=== PATIENT | female | born 2005 | race Caucasian/White ===

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

== ENCOUNTER 2025-02-28 11:47 | Outpatient (CLI) | payer OTHER, SELFPAY ==
--- NOTE | ~2025-02-28 | XR_ITS ---
EXAMINATION: SCOLIOSIS DATE: 03/02/2025 7:55 KITCHEN BATH DESIGNER INDICATION: There is origin TECHNIQUE: Standing AP and lateral views of the thoracolumbar spine FINDINGS: There are 12 rib bearing thoracic vertebral bodies and 5 non-rib bearing lumbar type vertebral bodies. There is no listhesis, compression deformity or vertebral body anomalies. There is dextroscoliosis of the thoracic spine centered at T9-T10 measuring 10 degrees. There is levoscoliosis of the lower thoracic and lumbar spine centered at L1 measuring 10 degrees. IMPRESSION: 1. Mild S-shaped scoliosis. 2. No vertebral body anomalies. Reviewed, dictated and finalized at location I. HEN BATH DESIGNER
== END 2025-02-28 11:48 | disposition home or self-care (01) ==
PROVIDERS: PCP Family Medicine; Visit Provider Family Medicine
DX: M54.9 Dorsalgia, unspecified (principal); M41.9 Scoliosis, unspecified
CPT/HCPCS: 72082

== ENCOUNTER 2025-04-03 12:41 | Outpatient (CLI) | payer OTHER, SELFPAY ==
--- NOTE | ~2025-04-03 | US_ITS ---
US renal BI 04/03/2025 12:56 Procedure: Realtime transabdominal ultrasound of the kidneys and bladder. Indication: Acute cystitis. Hematuria. Pain. Comparison: No prior studies for comparison. Findings: Renal echotexture is normal bilaterally without hydronephrosis, contour deforming mass or renal calculus. The right kidney measures 9 cm and left kidney measures 9.2 cm. Bladder within normal limits. Impression: 1: Unremarkable renal ultrasound. No stones, masses or hydronephrosis. Reviewed, dictated and finalized at location O. EGE ADMINISTRATOR Impression: 1: Unremarkable renal ultrasound. No stones, masses or hydronephrosis.
== END 2025-04-03 12:42 | disposition home or self-care (01) ==
LOC: GOSHIMG 12:43
PROVIDERS: PCP Family Medicine; Visit Provider Family Medicine
DX: N30.01 Acute cystitis with hematuria (principal)
CPT/HCPCS: 76770